=== PATIENT | female | born 1980 | race Caucasian/White ===

== ENCOUNTER 2020-11-16 16:42 | Inpatient (IN) | payer OTHER ==
[~2020-11-16] VITALS: Ht 160 cm; Wt 69.4 kg
[~2020-11-16 16:42] MED LIST: PHENERGAN 25 MG25 M1 PO; PRILOSEC OTC20 MG PO; SUBUTEX 8 MG TAB8 MG PO; TRANSDERM-SCOP1 EACH TOP; ZANTAC150 MG PO; ZOFRAN4 MG PO; ZOFRAN8 MG PO
[2020-11-16 18:13] LABS: HEMOGLOBIN 11.6 gm/dl (12.3-15.3); RED BLOOD COUNT 3.92 M/UL (4.00-5.10); WHITE BLOOD COUNT 11.4 K/UL (4.5-11.0)
[2020-11-16 18:34] LABS: BUN/CREATININE RATIO 17 (0-10)
[2020-11-18 06:37] LABS: HEMOGLOBIN 11.7 gm/dl (12.3-15.3)
[2020-11-18 08:14] LABS: HIV SCREEN 4TH GENERATION WRFX Non Reactive (Non Reactive)
[2020-11-19] MEDS ORDERED: IBUPROFEN600 MG PO (12:54)
[2020-11-19] MEDS ORDERED: DOCUSATE SODIU100 MG PO (12:54)
== END 2020-11-19 14:29 | disposition home or self-care (01) | DRG 806 ==
LOC: GENOP 16:42 → OB 16:55
PROVIDERS: Obstetrics & Gynecology; ADMIT Obstetrics & Gynecology
PROC: 10E0XZZ Delivery of Products of Conception, External Approach (ICD-10-PCS; principal; 2020-11-17)
PROC: 10907ZC Drainage of Amniotic Fluid, Therapeutic from Products of Conception, Via Natural or Artificial Opening (ICD-10-PCS; 2020-11-17)
PROC: 0U7C7ZZ Dilation of Cervix, Via Natural or Artificial Opening (ICD-10-PCS; 2020-11-17)
PROC: 10H07YZ Insertion of Other Device into Products of Conception, Via Natural or Artificial Opening (ICD-10-PCS; 2020-11-17)
DX: O99.324 Drug use complicating childbirth (principal); F11.20 Opioid dependence, uncomplicated; Z37.0 Single live birth; O98.42 Viral hepatitis complicating childbirth; Z28.21 Immunization not carried out because of patient refusal; O36.0930 Maternal care for other rhesus isoimmunization, third trimester, not applicable or unspecified; Z3A.38 38 weeks gestation of pregnancy; B19.20 Unspecified viral hepatitis C without hepatic coma; O12.04 Gestational edema, complicating childbirth; O75.89 Other specified complications of labor and delivery; N18.9 Chronic kidney disease, unspecified; Z88.1 Allergy status to other antibiotic agents; O99.334 Smoking (tobacco) complicating childbirth; F17.210 Nicotine dependence, cigarettes, uncomplicated; Z90.49 Acquired absence of other specified parts of digestive tract; Z20.822 Contact with and (suspected) exposure to COVID-19
CPT/HCPCS: 36415; 51702; 80053; 80307; 81001; 85014; 85018; 85025; 85610; 85730; 86780; 86900; 86901; 87389; 90715; J2405; J2590; J3430; J7120; U0003